=== PATIENT | female | born 1980 | race Caucasian/White ===

== ENCOUNTER → 2021-03-10 11:47 | Outpatient (CLI) | payer BC, SELFPAY ==
--- NOTE | ~2021-03-10 | MM_ITS ---
EXAMINATION: MM screening olivia BI w saleem HISTORY: Screening mammogram TECHNIQUE: Craniocaudal and mediolateral oblique 3-D tomosynthesis images were obtained and synthetic 2-D images were generated. CAD analysis was submitted and interpreted. COMPARISON: None, baseline BREAST PARENCHYMAL COMPOSITION: The breasts are heterogeneously dense, which may obscure small masses . FINDINGS: There is no evidence of suspicious mass, calcification, or architectural distortion to sugg est malignancy in either breast. IMPRESSION: 1. No mammographic evidence of malignancy. 2. Recommend routine screening mammography in one year. BI-RADS Category 1: Negative Reviewed, dictated and finalized at location A.
== END ==
PROVIDERS: Visit Provider Obstetrics & Gynecology
DX: Z12.31 Encounter for screening mammogram for malignant neoplasm of breast (principal)
CPT/HCPCS: 77063; 77067

== ENCOUNTER 2023-08-11 09:01 | Outpatient (CLI) | payer BC, SELFPAY ==
--- NOTE | 2023-08-31 13:05 | WPDHOMESLEEP ---
Sleep Study - Home Unattended Date of Study: 08/11/23 Ordering Provider: Crista Venegas, SPLITTING MACHINE FEEDER- Interpreting Provider: Maegan Abbott, DO Home Sleep Study Type: Watch PAT Height: 1.7 m Weight: 65.317 kg Body Mass Index: 22.5 Neck Circumference (inches): 13 [place]: 9 Reason for Sleep Study Daytime hypersomnia Sleep History The patient is a 40-year-old with anxiety, hyperlipidemia and tobacco use that had a sleep study ordered by primary care for evaluation of sleep apnea. The patient denies awakening from sleep short of breath. She rarely awakens at night with heartburn, belching or cough. She occasionally snores but is rarely loud others complain. She frequently has trouble sleeping when she has a cold. She rarely wakes up gasping for air throughout the night. She occasionally has breathing problems at night observed by herself or others. She rarely sweats excessively at night. She rarely has heart palpitations or irregular heartbeats during the night. She rarely falls asleep during the day but never while driving. She denies cataplexy. She rarely has trouble at school or work due to sleepiness. She rarely feels unable to move while waking up or falling asleep. She occasionally experiences vivid dreamlike scenes upon awakening or falling asleep. She denies feeling afraid of going to sleep. She rarely has nightmares. She occasionally remembers her dreams. She frequently has thoughts racing through her mind. She occasionally feels sad, depressed and anxious. She rarely has muscular tension. She occasionally notices parts of her body jerk. She rarely kicks during the night. She occasionally has crawling and aching feelings in her legs and occasionally has leg pain during the night. She denies grinding her teeth during sleep denies awakening with morning jaw pain. She is rarely bothered by pain during the day and rarely awakened by pain during the night. She occasionally wakes feeling stiff in the morning. She occasionally wakes up with sore or achy muscles. She occasionally wakes up with pain in the neck, spine or other joints. She goes to bed at 9:30 p.m. on weekdays and 11:00 p.m. on weekends. It takes her 20 minutes to fall asleep. She wakes up 2-3 times throughout the night to urinate or to adjust her position. It takes her 20 minutes to fall back asleep. She wakes up at 6:30 a.m. on weekdays and at a.m. on the weekends. She typically gets 8 hours of sleep per night. She will stay in bed for 15 minutes after waking up in the morning. She currently lives with her and children. She denies consuming any caffeinated beverages within 2 hours of bedtime. She denies engaging in physical exercise before bedtime. She will read and watch television before falling asleep. She will take naps in the afternoon or the evening but they are not refreshing. She consumes 1 cup of coffee per day. She does use a tobacco product daily. She will consume alcohol. She denies recreational drug use. Sleep Procedure The sleep study was completed using [employer] a technically adequate device with seven channels: peripheral arterial tone, actigraphy, body position, snore, respiratory movement, pulse oximetry, sleep staging, and heart rate. Prior to using the device, the patient received verbal and written instructions for its application and was provided with the help desk phone number for additional telephonic instruction with 24-hour availability of qualified personnel to answer questions. The study was scored using CMS guidelines. Sleep Architecture The patient had a total recording time of 8 hours 54 minutes and a total sleep time of 7 hours 59 minutes. The sleep efficiency was 89.62%. The sleep latency was 18 minutes and the REM latency was 90 minutes. The patient had 5 awakenings. The patient spent 67.66% of total sleep time in light sleep, 13.67% of total sleep time in deep sleep and 18.67% of total sleep time in REM
[2023-08-31 13:18] VITALS: BMI 22.5
== END 2023-08-12 13:01 | disposition home or self-care (01) ==
LOC: ANHCSM 09:11
PROVIDERS: PCP Nurse Practitioner Family; Visit Provider Nurse Practitioner Family
DX: G47.10 Hypersomnia, unspecified (principal); G47.9 Sleep disorder, unspecified
CPT/HCPCS: 95800